=== PATIENT | female | born 1985 | race American Indian/Alaskan Native ===

== ENCOUNTER 2021-03-21 21:29 | Emergency (ER) | payer OTHER ==
[2021-03-21 21:58] VITALS: BP 145/87
[2021-03-21] MEDS ORDERED: oxyCODONE /ACETAMINOPHEN 5-325MG TAB PO ONE (23:49)
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
== END 2021-03-22 01:15 | disposition home or self-care (01) ==
LOC: ED 21:29
DX: M62.830 Muscle spasm of back (principal); Z79.899 Other long term (current) drug therapy
CPT/HCPCS: 99282